=== PATIENT | female | born 1935 | race Caucasian/White ===

== ENCOUNTER 2018-12-12 20:42 | Emergency (ER) | payer MEDICARE, OTHER, SELFPAY ==
[2018-12-12 20:43] VITALS: BP 188/75; PULSE 64; RESP 18; TEMP 36.2; O2SAT 99
--- NOTE | 2018-12-12 20:54 | DI.RAD.S_ITS ---
PROCEDURE: XR CHEST 1V INDICATIONS: chest pain TECHNIQUE: One view of the chest was acquired. COMPARISON: None. FINDINGS: Surgical changes and devices: None. Lungs and pleura: Lungs are clear. No pleural effusions or pneumothorax. Mediastinum: Mediastinal contours appear normal. Heart size is normal. Bones and chest wall: No suspicious bony lesions. Overlying soft tissues appear unremarkable. IMPRESSION: No acute cardiopulmonary findings. Dictated by: Clare Darby M.D. on 12/12/2018 at 21:23 Approved by: Clare Darby M.D. on 12/12/2018 at 21:23
[2018-12-12 21:06] VITALS: BP 138/93; PULSE 74; RESP 18; O2SAT 98
[2018-12-12 21:13] LABS: Add Manual Diff / Slide Review NO; Basophils Absolute Auto 0 /uL (0-100); Basophils Percent Auto 0.5 % (0-2); Eosinophils Absolute Auto 300 /uL (0-450); Eosinophils Percent Auto 3.8 % (2-4); Hematocrit 46.7 % (36-46); Hemoglobin 15.8 g/dL (12.0-16.0); Lymphocytes Absolute Auto 3600 /uL (1100-4500); Lymphocytes Percent Auto 38.6 % (25-40); Mean Corpuscular HGB Conc 33.7 % (30-36); Mean Corpuscular Hemoglobin 29.8 PG (26-34); Mean Corpuscular Volume 88.4 fL (80-100); Monocytes Absolute Auto 700 /uL (0-900); Monocytes Percent Auto 7.7 % (3-14); Neutrophils Absolute Auto 4500 /uL (1500-7000); Neutrophils Percent Auto 49.4 % (50-75); Platelet Count 234 X10^3/uL (150-400); Red Blood Cell Count 5.28 X10^6/uL (4.0-5.2); Red Cell Distribution Width 14.4 % (11.6-14.8); White Blood Cell Count 9.2 X10^3/uL (4.5-11.0)
[2018-12-12 21:19] LABS: INR 0.9 (0.9-1.3); Prothrombin Time 10.4 SECONDS (10.1-12.7)
[2018-12-12 21:22] LABS: PTT Partial Thromboplastin Tim 32 SECONDS (26.4-36.2)
[2018-12-12 21:25] LABS: Alanine Aminotransferase 28 IU/L (9-52); Albumin 4.5 g/dL (3.5-5.0); Albumin Globulin Ratio 1.3 (1.0-2.8); Alkaline Phosphatase 92 U/L (38-126); Aspartate Aminotransferase 28 IU/L (14-36); BUN Creatinine Ratio 25.6 (6-22); Bilirubin Total 0.2 mg/dL (0.2-1.3); Blood Urea Nitrogen 23 mg/dL (7-17); Calcium 9.5 mg/dL (8.4-10.2); Carbon Dioxide 28 mmol/L (22-32); Chloride 102 mmol/L (98-107); Creatine Kinase 90 U/L (30-135); Estimated Glomerular Filt Rate > 60.0 mL/min (>60); Globulin 3.4 g/dL (1.7-4.1); Glucose 94 mg/dL (80-110); HEMOLYSIS 38 (0-50); Lipase 124 U/L (23-300); Potassium 4.4 mmol/L (3.4-5.1); Sodium 139 mmol/L (137-145); Total Protein 7.9 g/dL (6.3-8.2)
[2018-12-12 21:30] VITALS: BP 162/64; PULSE 66; RESP 16; O2SAT 95
[2018-12-12 21:36] LABS: Troponin I < 0.012 ng/mL (0.01-0.034)
--- NOTE | 2018-12-12 22:07 | ED_ITS ---
HPI - SOB/Dyspnea General Chief Complaint: Shortness of Breath/Dyspnea Stated Complaint: shakey Time Seen by Provider: 12/12/18 20:45 Source: patient and family Mode of arrival: ambulatory Limitations: no limitations History of Present Illness 83-year-old female nonsmoker with very clean medical history presents with multiple family members and the chief complaint of an episode of left-sided neck pressure or fullness that started about 30 min prior to her arrival. She states she had a bit of nausea leading into that and did not eat her dinner tonight. She is asymptomatic on arrival. She denies provocation, palliation or radiation of her symptoms. She denies any recent exertional or exercise fatigue. She denies other cardiac equivalent such as dizziness or lightheadedness. She has no diaphoresis. She denies any history of the same. She recently flew here from [place] to visit family members Complaint: shortness of breath Onset (ago): minute(s) Context: recent travel Severity: mild Consistency/Duration: intermittent Relieving factors: nothing Exacerbating factors: nothing Associated symptoms: denies other symptoms Treatment prior to arrival: none Related Data Home oxygen amount: none Home Medications Medication Instructions Recorded Confirmed aspirin 81 mg PO DAILY 12/12/18 12/12/18 levothyroxine 50 mcg PO DAILY 12/12/18 12/12/18 Allergies Allergy/AdvReac Type Severity Reaction Status Date / Time No Known Drug Allergies Allergy Verified 12/12/18 20:45 Review of Systems Constitutional Denies chills, Denies fever(s), Denies lethargy and Denies weakness Eyes Denies change in vision, Denies eye discharge, Denies irritation and Denies loss of vision ENT Ears, Nose, Mouth, and Throat: Denies change in voice, Denies neck pain and Denies sore throat Cardiovascular Denies chest pain, Denies irregular heart rhythm, Denies lightheadedness, Denies palpitations, Denies dyspnea, Denies dyspnea on exertion and Denies orthopnea Comments: neck pain Respiratory Denies cough, Denies dyspnea, Denies dyspnea on exertion and Denies wheezing Gastrointestinal Gastrointestinal: Denies abdominal pain, Denies change in bowel habits, Denies diarrhea, Denies nausea and Denies vomiting Genitourinary Denies hematuria, Denies flank pain, Denies urinary incontinence and Denies urinary urgency Musculoskeletal Denies neck pain Integumentary/Breasts Denies pruritus, Denies erythema, Denies rash and Denies wounds Neurologic Denies confusion, Denies loss of vision and Denies weakness Psychiatric Denies anxiety, Denies confusion, Denies depression, Denies homicidal ideation and Denies suicidal ideation Endocrine Denies palpitations Hematologic/Lymphatic Denies easy bruising Allergic/Immunologic Denies wheezing PFSH Social History Smoking Status: Never smoker Social History Smoking Status: Never smoker Exam Narrative Exam Narrative: GENERAL: This is a well-nourished, well-developed patient, in mild distress. HEAD: Atraumatic. Normocephalic. No temporal or scalp tenderness. EYES: Pupils equal round and reactive. Extraocular motions intact. No scleral icterus. No injection or drainage. ENT: Nose without bleeding, purulent drainage or septal hematoma. Throat without erythema, tonsillar hypertrophy or exudate. Uvula midline. Airway patent. NECK: Trachea midline. No JVD or lymphadenopathy. Supple, nontender, no meningeal signs. CARDIOVASCULAR: Regular rate and rhythm without murmurs, gallops, or rubs. RESPIRATORY: Clear to auscultation. Breath sounds equal bilaterally. No wheezes, rales, or rhonchi. GASTROINTESTINAL: Abdomen soft, non-tender, nondistended. No hepato- splenomegaly, or palpable masses. No guarding. EXTREMITIES: No clubbing, cyanosis, or edema. No joint tenderness, effusion, or edema noted. BACK: Nontender without deformity or crepitance. No flank tenderness. NEURO: AOx3. SKIN: No rash or erythema. Initial Vital Signs Initial Vital Signs: Vital Signs Temperature 97.2 F L 12/12/18 20:43 Pulse Rate 64 12/12/18 20:43 Respiratory Rate 18 12/12/18 20:43 Blood Pressure 188/75 H 12/12/18 20:43 Pulse Oximetry 99 12/12/18 20:43 Scores HEART Score Heart Score history: Moderately Suspicious Heart Score EKG: Normal Heart Score Age: > or = 65 years old Heart Score risk factors: No known risk factors Heart Score troponin: < or = to normal limit Heart Score Total: 3 PERC Score Age greater than or equal to 50 years: Yes Heart rate greater than or equal to 100 bpm: No Room Air O2 Sat less than 95%: No Unilateral leg swelling: No Recent trauma or surgery: No Hemoptysis: No Prior PE or DVT: No Hormone Use: No Total PERC Score: 1 Wells' Criteria for PE Clinical signs and symptoms of PE: No PE is #1 Dx or equally likely: No Heart rate > 100: No Immobilization at least 3 days or surg in previous 4 weeks: No History of PE or DVT: No Hemoptysis: No Malignancy w/Treatment within 6 months or palliative: No Wells' PE Score total: 0 Course Orders Ordered: ED Orders 12/12/18 21:45 EKG-12 Lead Stat 12/12/18 23:02 Troponin I Stat Vital Signs - 8 hr 12/12/18 22:30 12/12/18 23:00 12/12/18 23:30 Pulse Rate 58 L 94 H 56 L Respiratory Rate 16 16 16 Blood Pressure [Left Arm] 175/57 H 151/71 H 142/55 H Pulse Oximetry 96 94 96 MDM - SOB/Dyspnea Medical Records Attestation: I reviewed the patient's medical records. Lab Data Attestation: I reviewed the patient's lab results. Result diagrams: 12/12/18 21:00 12/12/18 21:00 Lab Results 12/12/18 12/12/18 12/12/18 Range/Units 21:00 21:00 21:00 WBC 9.2 (4.5-11.0) X10^3/uL RBC 5.28 H (4.0-5.2) X10^6/uL Hgb 15.8 (12.0-16.0) g/dL Hct 46.7 H (36-46) % MCV 88.4 (80-100) fL MCH 29.8 (26-34) PG MCHC 33.7 (30-36) % RDW 14.4 (11.6-14.8) % Plt Count 234 (150-400) X10^3/uL Neut % (Auto) 49.4 L (50-75) % Lymph % (Auto) 38.6 (25-40) % [place] % (Auto) 7.7 (3-14) % Eos % (Auto) 3.8 (2-4) % Baso % (Auto) 0.5 (0-2) % Neut # (Auto) 4500 (7504-9341) /uL Lymph # (Auto) 3600 (6804-7618) /uL [place] # (Auto) 700 (0-900) /uL Eos # (Auto) 300 (0-450) /uL Baso # (Auto) 0 (0-100) /uL PT 10.4 (10.1-12.7) SECONDS INR 0.9 (0.9-1.3) APTT 32 (26.4-36.2) SECONDS D-Dimer (<230) ng/mL Sodium 139 (137-145) mmol/L Potassium 4.4 (3.4-5.1) mmol/L Chloride 102 (98-107) mmol/L Carbon Dioxide 28 (22-32) mmol/L BUN 23 H (7-17) mg/dL Creatinine 0.90 (0.52-1.04) mg/dL Estimated GFR > 60.0 (>60) mL/min BUN/Creatinine Ratio 25.6 H (6-22) Glucose 94 (80-110) mg/dL Calcium 9.5 (8.4-10.2) mg/dL Total Bilirubin 0.2 (0.2-1.3) mg/dL AST 28 (14-36) IU/L ALT 28 (9-52) IU/L Alkaline Phosphatase 92 (38-126) U/L Total Creatine Kinase 90 (30-135) U/L CK-MB (CK-2) TNP CK-MB (CK-2) Rel Index TNP Troponin I < 0.012 (0.01-0.034) ng/mL Total Protein 7.9 (6.3-8.2) g/dL Albumin 4.5 (3.5-5.0) g/dL Globulin 3.4 (1.7-4.1) g/dL Albumin/Globulin Ratio 1.3 (1.0-2.8) Lipase 124 (23-300) U/L TSH (0.47-4.68) uIU/mL 12/12/18 12/12/18 12/12/18 Range/Units 21:00 21:00 23:02 WBC (4.5-11.0) X10^3/uL RBC (4.0-5.2) X10^6/uL Hgb (12.0-16.0) g/dL Hct (36-46) % MCV (80-100) fL MCH (26-34) PG MCHC (30-36) % RDW (11.6-14.8) % Plt Count (150-400) X10^3/uL Neut % (Auto) (50-75) % Lymph % (Auto) (25-40) % [place] % (Auto) (3-14) % Eos % (Auto) (2-4) % Baso % (Auto) (0-2) % Neut # (Auto) (8207-9370) /uL Lymph # (Auto) (7067-8000) /uL [place] # (Auto) (0-900) /uL Eos # (Auto) (0-450) /uL Baso # (Auto) (0-100) /uL PT (10.1-12.7) SECONDS INR (0.9-1.3) APTT (26.4-36.2) SECONDS D-Dimer 268 H (<230) ng/mL Sodium (137-145) mmol/L Potassium (3.4-5.1) mmol/L Chloride (98-107) mmol/L Carbon Dioxide (22-32) mmol/L BUN (7-17) mg/dL Creatinine (0.52-1.04) mg/dL Estimated GFR (>60) mL/min BUN/Creatinine Ratio (6-22) Glucose (80-110) mg/dL Calcium (8.4-10.2) mg/dL Total Bilirubin (0.2-1.3) mg/dL AST (14-36) IU/L ALT (9-52) IU/L Alkaline Phosphatase (38-126) U/L Total Creatine Kinase (30-135) U/L CK-MB (CK-2) CK-MB (CK-2) Rel Index Troponin I < 0.012 (0.01-0.034) ng/mL Total Protein (6.3-8.2) g/dL Albumin (3.5-5.0) g/dL Globulin (1.7-4.1) g/dL Albumin/Globulin Ratio (1.0-2.8) Lipase (23-300) U/L TSH 2.60 (0.47-4.68) uIU/mL ECG Data Attestation: I personally reviewed and interpreted this ECG as follows: Prior ECG tracings: not available for review Interpretation: EKG is normal sinus rhythm rate [ 58] and free of any signs of ischemia or ectopy. No ST segmental elevation or depression. No T wave inversions Repeat EKG unchanged MDM Narrative Medical decision making narrative: multiple diagnoses of patient's symptoms considered including myocardial infarction but thought less likely given atypical presentation, with minimal cardiac equivalent, lack of ischemic changes on EKG, heart score of 3 with multiple negative troponins and no ongoing symptoms. Pulmonary embolism considered but D-dimer negative when corrected for age. Pneumonia considered but thought less likely given lack of findings on exam or chest x-ray. I had extensive discussion at the bedside with the patient and her family about approach to life threatening causes of her symptoms. We discussed HEART score as well as use of Misha Zurita's PE algorithm with Wells/PERC among others. patient and family have a firm understanding of our approach, and the need for close follow-up at home including a likely outpatient stress test within the next week. They have assured me that patient's is already working on getting her in with her primary care provider soon as she gets home 2 days. they have been given a long list of return precautions including recurrence of symptoms, ongoing shortness of breath, cough or other bothersome symptoms such as dizziness, weakness or lightheadedness. They have v erbalized their understanding Discharge Plan Departure Patient Disposition: Home Clinical Impression: Atypical chest pain Discharge Date/Time: 12/13/18 00:08 Interventions: ED Discharge Assessment Last Done: 12/12/18 23:58 Instructions: DI for Atypical Chest Pain Activity Restrictions/Additional Instructions: *You have been diagnosed with [ Atypical chest pain, heart attack, blood clot and other diagnoses considered ] *What to do: * continue to take medications as directed *Follow up with your primary care provider in 2-3 days, call for an appointment. Let them know you were seen in the Emergency Department and that we ask that you be seen in follow up. It is likely that they will have you do some outpatient testing such as a stress test or echocardiogram *Return to ER if you should have any new, worsening or concerning symptoms Prescriptions: No Action levothyroxine 50 mcg Tablet 50 mcg PO DAILY RF: 0 aspirin 81 mg Tablet,Chewable 81 mg PO DAILY RF: 0
[2018-12-12 22:30] VITALS: BP 175/57; PULSE 58; RESP 16; O2SAT 96
[2018-12-12 22:42] LABS: D Dimer 268 ng/mL (<230)
[2018-12-12 23:00] VITALS: BP 151/71; PULSE 94; RESP 16; O2SAT 94
[2018-12-12 23:30] VITALS: BP 142/55; PULSE 56; RESP 16; O2SAT 96
[2018-12-12 23:32] LABS: Troponin I < 0.012 ng/mL (0.01-0.034)
== END 2018-12-13 00:08 | disposition home or self-care (01) ==
PROVIDERS: Emergency Provider Emergency Medicine
DX: R07.89 Other chest pain (principal)
CPT/HCPCS: 36415; 36591; 71045; 80053; 82550; 83690; 84443; 84484; 85025; 85379; 85610; 85730; 93005; 93010; 99283; 99285